=== PATIENT | female | born 1995 | race Caucasian/White ===

== ENCOUNTER 2017-09-05 13:38 | Emergency (ER) | payer OTHER ==
[2017-09-05 13:44] VITALS: O2SAT 98
[2017-09-05] MEDS ORDERED: LORazepam 1 MG TAB PO ONE (14:22)
--- NOTE | 2017-09-05 14:36 | EDPHY ---
H & P Stated Complaint: LORAZEPAM REFILL Source: Patient Exam Limitations: No limitations - Personal History Current Tetanus Diphtheria and Acellular Pertussis (TDAP): Unsure - Medical/Surgical History Hx Asthma: No Hx Chronic Respiratory Disease: No Hx Diabetes: No Hx Cardiac Disease: No Hx Renal Disease: No Hx Cirrhosis: No Hx Alcoholism: No Hx HIV/AIDS: No Hx Splenectomy or Spleen Trauma: No Other PMH: HIP SURGERIES. TONSILS, ADENOIDS, L BREAST IMPLANT - Social History Smoking Status: Never smoked Time Seen by Provider: 09/05/17 14:32 HPI/ROS: HPI: This is a 22-year-old female who presents with Chief Complaint: Medication refill Location: Quality: Medication refill Duration: 1 month Signs and Symptoms: No suicidal ideation, no homicidal ideation, no hallucinations, no paranoia, no chest pain, no shortness of breath, no abdominal pain Timing: Chronic Severity: Moderate Context: Patient was diagnosed with generalized anxiety disorder only 1 year ago while she was living in [place]. Patient moved recently over the last month to [facility] to be able to work and utilize her [employer] degree. 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 She was taking Ativan 1 mg 3 times a day scheduled not on an SSRI or TCA. She has been out of her Ativan for approximately 1 month. Patient has and has had found it to be very difficult to obtain a primary care provider despite her multiple attempts. She does have a appointment with a local psychiatrist scheduled for October 05. Patient reports that she does have insomnia at times due to shift work. She is excited about moving to [place] to start a new life but is extremely frustrated that she is unable to establish care and get medication refill. Modifying Factors: none Comment: ROS: see HPI Constitutional: No fever, no chills, no weight loss Eyes: No blurred vision Respiratory: No shortness of breath, no cough Cardiovascular: No chest pain Gastrointestinal: No nausea, no vomiting, no diarrhea Genitourinary: No dysuria Extremities: No myalgias Neurologic: No weakness, no numbness Skin: No rashes Hematologic: No bruising, no bleeding MEDICAL/SURGICAL/SOCIAL HISTORY: Medical history: Generalized anxiety disorder Surgical history: Denies Social history: Employed. CONSTITUTIONAL: awake and alert, no obvious distress HEENT: Atraumatic and normocephalic, PERRL, EOMI. Tympanic membranes clear. Oropharynx clear, no exudate and moist pink mucosa. Airway patent. No lymphadenopathy. No meningismus. Cardiovascular: Normal S1/S2, regular rate, regular rhythm, without murmur rub or gallop. PULMONARY/CHEST: Symmetrical and nontender. Clear to auscultation bilaterally. Good air movement. No accessory muscle usage. ABDOMEN: Soft, nondistended, nontender, no rebound, no guarding, no peritoneal signs, no masses or organomegaly. No CVAT. EXTREMITIES: 2/2 pulses, strength 5/5, no deformities, no clubbing, no cyanosis or edema. NEUROLOGICAL: no focal neuro deficits. GCS 15. SKIN: Warm and dry, no erythema. no rash. Good capillary refill. PSYCH: Good eye contact, no flight of ideas, organized thought process, good insight and judgment, no auditory and visual command hallucinations, no suicidal ideation with a plan, no homicidal ideation, no paranoia (Nickerson,Terra) Constitutional: Initial Vital Signs Temperature (C) 36.7 C 09/05/17 13:41 Heart Rate 94 09/05/17 13:41 Respiratory Rate 18 09/05/17 13:41 Blood Pressure 139/88 H 09/05/17 13:41 O2 Sat (%) 98 09/05/17 13:41 O2 Delivery Mode Room Air Allergies/Adverse Reactions: Penicillins Allergy (Verified 09/05/17 13:40) Sulfa (Sulfonamide Antibiotics) Allergy (Verified 09/05/17 13:40) UNKNOWN ANTIBIOTICS Allergy (Uncoded 09/05/17 13:40) Home Medications: Medication Instructions Recorded LORazepam 09/05/17 LORazepam [Ativan] 1 mg PO DAILY PRN #6 tablet 09/05/17 Medical Decision Making ED Course/Re-evaluation: This patient was seen with secondary supervising physician. Patient's presentation, labs/imaging, treatment and plan of care were reviewed with secondary supervising physician. This patient was seen under the supervision of my secondary MD Dr. Keita. After discussing patient's case with attending, it was decided to give patient 1 mg Ativan here in the ER and a script for limited number of 6 total. wild life manager was consulted and primary care provider options and follow-up were provided. No signs of benzodiazepine withdrawal/SI/HI Patient would benefit starting SSRI/TCA of limited use of Ativan p.r.n. (Mehnaz Polanco) Differential Diagnosis: Differential diagnosis includes but is not limited to benzodiazepine withdrawal generalized anxiety disorder, depression. (Mehnaz Polanco) Other Provider: The patient was evaluated and managed by the Physician Pump Technician/ Nurse Practitioner. I discussed the patient's presentation and course with the midlevel provider with them and agree with the evaluation. My co-signature indicates that I have reviewed this chart and I agree with the findings and plan of care as documented. I am the secondary supervising physician. (Francia Keita) - Data Points Medications Given: Discontinued Medications Lorazepam (Ativan) 1 mg PO EDNOW ONE Stop: 09/05/17 14:23 Last Admin: 09/05/17 14:31 Dose: 1 mg Departure - Departure Disposition: Home, Routine, Self-Care Clinical Impression: Generalized anxiety disorder, Has run out of medications Condition: Good Instructions: Generalized Anxiety Disorder (ED) Additional Instructions: You have an appointment at [facility] tomorrow Monday09/06/17 at 3pm. Referrals: Sally Ellis MD [Medical Doctor] - As per Instructions [facility],. [Clinic] - As per Instructions Ana Laura Ayala MD [Medical Doctor] - As per Instructions Prescriptions: LORazepam [Ativan] 1 mg PO DAILY PRN #6 tablet PRN Reason: Anxiety
[2017-09-05 15:47] VITALS: BP 130/77; PULSE 90; RESP 16; TEMP 98.4
--- NOTE | 2017-09-05 16:22 | ASMTCMCOM ---
CM Note CM Note Notes: Spoke with patient about finding a local PCP who takes and would be able and willing to prescribe her usual Ativan for her chronic anxiety and OCD. Patient recently moved to [place] from [place]. Patient has called and tried to find in-network providers that would prescribe Ativan but has been unsuccessful Spoke with Katie at [facility] and she says PC could see if they are in-network with and also see financially screen patient for supplement such as Medicaid. Patient is open to this option. Patient has an appointment at PC tomorrow at 3pm. Patient provided PC address, phone number and other information. CM available for further assistance if needed. Date Signed: 09/05/2017 04:21 PM Electronically Signed By:Neda Silva RN
--- NOTE | 2017-09-05 16:24 | ASDISCHSUM ---
Discharge Information Plan Status:Home with No Needs Medically Cleared to Leave: Discharge Date:09/05/2017 03:44 PM CM D/C Disposition:Home, Routine, Self-Care ADT D/C Disposition:Home, Routine, Self-Care Projected Discharge Date:09/05/2017 03:44 PM Transportation at D/C:Self Discharge Delay Reason: Follow-Up Date:09/05/2017 03:44 PM Discharge Slot: Final Diagnosis: Placement Information Patient Contact Information Contact Name:CATHERINE Relationship:Mother Address: Work Phone: City: [facility] Phone: State/[place] Code: Email: Financial Information Financial Class:HMO and PPO Plans Primary Plan Desc:[facility] Primary Plan Number:[id number] Secondary Plan Desc: Secondary Plan Number: Assessment Information [facility] Progress Note CM Note CM Note Notes: Spoke with patient about finding a local PCP who takes and would be able and willing to prescribe her usual Ativan for her chronic anxiety and OCD. Patient recently moved to [place] from [place]. Patient has called [facility] and tried to find in-network providers that would prescribe Ativan but has been unsuccessful Spoke with Katie at [facility] and she says could see if they are in-network with and also see financially screen patient for supplement such as Medicaid. Patient is open to this option. Patient has an appointment at tomorrow at 3pm. Patient provided PC address, phone number and other information. CM available for further assistance if needed. Date Signed: 09/05/2017 04:21 PM Electronically Signed By:Neda Silva RN LACE LACE Acuity / Level of Care Answers: No. Emergency dept visits in Answers: 1 last 6 months Score: 1 Date Signed: 09/05/2017 04:22 PM Electronically Signed By:Neda Silva RN Intervention Information
== END 2017-09-05 15:44 | disposition home or self-care (01) ==
DX: F41.9 Anxiety disorder, unspecified (principal)

== ENCOUNTER 2017-11-19 08:54 | Emergency (ER) | payer BC, OTHER ==
[2017-11-19 09:02] VITALS: TEMP 98.2
--- NOTE | 2017-11-19 09:56 | EDPHY ---
H & P Stated Complaint: right hip pain starting 2 nights ago Source: Patient Exam Limitations: No limitations - Personal History LMP (Females 10-55): 8-14 Days Ago Current Tetanus/Diphtheria Vaccine: Yes Current Tetanus Diphtheria and Acellular Pertussis (TDAP): Yes Tetanus Vaccine Date: < 10 years - Medical/Surgical History Hx Asthma: No Hx Chronic Respiratory Disease: No Hx Diabetes: No Hx Cardiac Disease: No Hx Renal Disease: No Hx Cirrhosis: No Hx Alcoholism: No Hx HIV/AIDS: No Hx Splenectomy or Spleen Trauma: No Other PMH: HIP SURGERIES. 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 Denies any fever/nausea/vomiting /dysuria/hematuria/vaginal bleeding or discharge/radiation/weakness. Patient has had no recent physical activity or trauma. LMP 1-2 weeks ago. 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 Denies any urinary symptoms. Denies history of frequent urinary tract infection. No fever. Modifying Factors: None Comment: ROS: see HPI Constitutional: No fever, no chills, no weight loss Eyes: No blurred vision Respiratory: No shortness of breath, no cough Cardiovascular: No chest pain Gastrointestinal: No nausea, no vomiting no diarrhea Genitourinary: No dysuria Extremities: No myalgias Neurologic: No weakness, no numbness Skin: No rashes Hematologic: No bruising, no bleeding MEDICAL/SURGICAL/SOCIAL HISTORY: Medical/surgical history: Generally healthy. HIP SURGERIES, TONSILS, ADENOIDS, L BREAST IMPLANT Social history: Employed. CONSTITUTIONAL: Obese, nontoxic appearing, very dramatic in talkative, young adult female, awake and alert, no obvious distress HEENT: Atraumatic and normocephalic, PERRL, EOMI. Tympanic membranes clear. Oropharynx clear, no exudate and moist pink mucosa. Airway patent. No lymphadenopathy. No meningismus. Cardiovascular: Normal S1/S2, tachycardia, regular rhythm, without murmur rub or gallop. PULMONARY/CHEST: Symmetrical and nontender. Clear to auscultation bilaterally. Good air movement. No accessory muscle usage. ABDOMEN: Soft, nondistended, nontender, no rebound, no guarding, no peritoneal signs, no masses or organomegaly. Right CVAT. BACK: No midline tenderness, no paraspinous spasm, deep tendon reflexes 2/2, no pain with straight leg raise EXTREMITIES: 2/2 pulses, strength 5/5, right HIP: Flexion to 125, extension to 115, hyper extension to 15, abduction to 45. Pain with internal rotation and external rotation. No tenderness over greater trochanter. no deformities, no clubbing, no cyanosis or edema. NEUROLOGICAL: no focal neuro deficits. GCS 15. SKIN: Warm and dry, no erythema. no rash. Good capillary refill. (Collin,Terra) Constitutional: Initial Vital Signs Temperature (C) 36.8 C 11/19/17 09:00 Heart Rate 107 H 11/19/17 09:00 Respiratory Rate 20 11/19/17 09:00 Blood Pressure 151/80 H 11/19/17 09:00 O2 Sat (%) 97 11/19/17 09:00 O2 Delivery Mode Room Air Allergies/Adverse Reactions: Penicillins Allergy (Verified 11/19/17 08:59) Sulfa (Sulfonamide Antibiotics) Allergy (Verified 11/19/17 08:59) UNKNOWN ANTIBIOTICS Allergy (Uncoded 09/05/17 13:40) Home Medications: Medication Instructions Recorded CLONAZEPAM 11/19/17 Ciprofloxacin [Cipro] 500 mg PO BID #14 tab 11/19/17 Ketorolac Tromethamine [Toradol] 10 mg PO Q6H PRN #16 tab 11/19/17 Phenazopyridine HCl [Pyridium] 100 mg PO Q8 #6 tab 11/19/17 Medical Decision Making - Diagnostics Imaging Results: Imaging Impressions Abdomen/Pelvis CT 11/19/17 10:02 Impression: 1. Possible evidence for right urinary tract infection. 2. No nephro or ureterolithiasis. 3. Constipation. Results called and discussed with Mehnaz Polanco, at 11/19/2017 11:48 Attention: This CT examination is specifically designed to evaluate patients who are clinically suspected of having acute obstructive uropathy. This examination does not use radiographic contrast, and as such, provides only a limited evaluation of the abdomen, pelvis and retroperitoneum. If there is further clinical suspicion for pathological conditions other than obstructive uropathy, a complete CT evaluation of the abdomen and pelvis utilizing intravenous, oral, and rectal contrast should be considered. General information for patients regarding this examination can be found at [email or web address]. If you have questions or comments about this report, please contact me at (hospital) or [phone] (cell). Hip X-Ray 11/19/17 10:02 Impression: 1. 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 If symptoms persist recommend 3-D hip MRI. 2. Minimal lucency around the right femoral screw, doubt loosening. 3. Possible active erosion involving the pubic symphysis. Correlation with any local symptoms is recommended. ED Course/Re-evaluation: Labs, urinalysis, right hip x-ray, IV fluids, IV medications, CT abdomen and pelvis scan without contrast Vital signs reviewed upon arrival and unremarkable. Given p.o. Ativan 1 mg due to excessive anxiety with IV stick, 1 L normal saline , IV Toradol Pelvic x-ray: No acute fracture/dislocation/hardware loosening Called by radiologist who advised that CT abdomen and pelvis scan shows: ? evidence for right urinary tract infection, No nephro or ureterolithiasis, Constipation. Urinalysis shows infection; sent for urine culture; 1 g Rocephin given No leukocytosis/fever/systemic signs. Appropriate to treat outpatient Prescription for ciprofloxacin given, push fluids, establish care with [facility] This patient was seen under the supervision of my secondary supervising physician. I evaluated care for this patient independently. (Mehnaz Polanco) I did not see this patient while she was in the emergency department. However her care was discussed with PA while the patient was in the department. I agree with treatment plan and management (Pablo Saldivar) Differential Diagnosis: Back pain including but not limited to muscular pain, herniated disc, spine fracture, intra-abdominal causes and urinary tract infection. (Mehnaz Polanco) - Data Points Laboratory Results: Laboratory Results 11/19/17 10:50 11/19/17 10:50 11/19/17 11/19/17 11/19/17 12:05 10:50 10:50 WBC RBC Hgb Hct MCV MCH MCHC RDW Plt Count MPV Neut % (Auto) Lymph % (Auto) [place] % (Auto) Eos % (Auto) Baso % (Auto) Nucleat RBC Rel Count Absolute Neuts (auto) Absolute Lymphs (auto) Absolute Monos (auto) Absolute Eos (auto) Absolute Basos (auto) Absolute Nucleated RBC Immature Gran % Immature Gran # Sodium 141 mEq/L mEq/L (135-145) Potassium 4.4 mEq/L mEq/L (3.5-5.2) Chloride 106 mEq/L mEq/L (97-110) Carbon Dioxide 19 mEq/l L mEq/l (22-31) Anion Gap 16 mEq/L mEq/L (8-16) BUN 11 mg/dL mg/dL (7-23) Creatinine 0.6 mg/dL mg/dL (0.6-1.0) Estimated GFR > 60 Glucose 100 mg/dL mg/dL (70-100) Calcium 9.6 mg/dL mg/dL (8.5-10.4) Total Bilirubin 0.9 mg/dL mg/dL (0.1-1.4) Conjugated Bilirubin 0.6 mg/dL H mg/dL (0.0-0.5) Unconjugated Bilirubin 0.3 mg/dL mg/dL (0.0-1.1) AST 41 IU/L IU/L (14-46) ALT 9 IU/L IU/L (9-52) Alkaline Phosphatase 84 IU/L IU/L (38-126) Total Protein 7.7 g/dL g/dL (6.3-8.2) Albumin 4.5 g/dL g/dL (3.5-5.0) Beta HCG, Qual NEGATIVE Specimen Hemolysis 128 Urine Color YELLOW Urine Appearance MODERATELY TURBID Urine pH 7.0 (5.0-7.5) Ur Specific [place] 1.014 (1.002-1.030) Urine Protein 2+ H (NEGATIVE) Urine Ketones NEGATIVE (NEGATIVE) Urine Blood 2+ H (NEGATIVE) Urine Nitrate POSITIVE H (NEGATIVE) Urine Bilirubin NEGATIVE (NEGATIVE) Urine Urobilinogen NEGATIVE EU EU (0.2-1.0) Ur Leukocyte Esterase 3+ H (NEGATIVE) Urine RBC 5-10 /hpf H /hpf (0-3) Urine WBC 50-182 /hpf H /hpf (0-3) Ur Epithelial Cells TRACE /lpf /lpf (NONE-1+) Urine Bacteria 1+ /hpf H /hpf (NONE SEEN) Urine Glucose NEGATIVE (NEGATIVE) 11/19/17 10:50 WBC 11.97 10^3/uL H 10^3/uL (3.80-9.50) RBC 4.52 10^6/uL 10^6/uL (4.18-5.33) Hgb 13.8 g/dL g/dL (12.6-16.3) Hct 40.6 % % (38.0-47.0) MCV 89.8 fL fL (81.5-99.8) MCH 30.5 pg pg (27.9-34.1) MCHC 34.0 g/dL g/dL (32.4-36.7) RDW 12.8 % % (11.5-15.2) Plt Count 244 10^3/uL 10^3/uL (150-400) MPV 9.6 fL fL (8.7-11.7) Neut % (Auto) 83.5 % H % (39.3-74.2) Lymph % (Auto) 10.0 % L % (15.0-45.0) [place] % (Auto) 5.6 % % (4.5-13.0) Eos % (Auto) 0.2 % L % (0.6-7.6) Baso % (Auto) 0.3 % % (0.3-1.7) Nucleat RBC Rel Count 0.0 % % (0.0-0.2) Absolute Neuts (auto) 9.99 10^3/uL H 10^3/uL (1.70-6.50) Absolute Lymphs (auto) 1.20 10^3/uL 10^3/uL (1.00-3.00) Absolute Monos (auto) 0.67 10^3/uL 10^3/uL (0.30-0.80) Absolute Eos (auto) 0.02 10^3/uL L 10^3/uL (0.03-0.40) Absolute Basos (auto) 0.04 10^3/uL 10^3/uL (0.02-0.10) Absolute Nucleated RBC 0.00 10^3/uL 10^3/uL (0-0.01) Immature Gran % 0.4 % % (0.0-1.1) Immature Gran # 0.05 10^3/uL 10^3/uL (0.00-0.10) Sodium Potassium Chloride Carbon Dioxide Anion Gap BUN Creatinine Estimated GFR Glucose Calcium Total Bilirubin Conjugated Bilirubin Unconjugated Bilirubin AST ALT Alkaline Phosphatase Total Protein Albumin Beta HCG, Qual Specimen Hemolysis Urine Color Urine Appearance Urine pH Ur Specific [place] Urine Protein Urine Ketones Urine Blood Urine Nitrate Urine Bilirubin Urine Urobilinogen Ur Leukocyte Esterase Urine RBC Urine WBC Ur Epithelial Cells Urine Bacteria Urine Glucose Medications Given: Discontinued Medications Sodium Chloride (Ns) 1,000 mls @ 0 mls/hr IV ONCE ONE; Wide Open PRN Reason: Protocol Stop: 11/19/17 10:02 Last Admin: 11/19/17 10:51 Dose: 1,000 mls Ceftriaxone Sodium 1 gm/ (Sterile Water) 10 mls @ 150 mls/hr IV EDNOW ONE PRN Reason: Protocol Stop: 11/19/17 13:07 Last Admin: 11/19/17 13:28 Dose: Not Given Ceftriaxone Sodium/Dextrose (Rocephin 1 Gm (Premix)) 50 mls @ 100 mls/hr IV ONCE ONE Stop: 11/19/17 13:59 Last Admin: 11/19/17 13:28 Dose: 50 mls Ketorolac Tromethamine (Toradol) 30 mg IVP EDNOW ONE Stop: 11/19/17 10:02 Last Admin: 11/19/17 10:51 Dose: 30 mg Ketorolac Tromethamine (Toradol) 15 mg IVP EDNOW ONE Stop: 11/19/17 13:49 Last Admin: 11/19/17 13:54 Dose: 15 mg Lorazepam (Ativan) 1 mg PO EDNOW ONE Stop: 11/19/17 10:11 Last Admin: 11/19/17 10:21 Dose: 1 mg Departure - Departure Disposition: Home, Routine, Self-Care Clinical Impression: UTI (urinary tract infection) Qualifiers: Urinary tract infection type: acute cystitis Hematuria presence: without hematuria Qualified Code(s): N30.00 - Acute cystitis without hematuria Condition: Good Instructions: Ciprofloxacin (By mouth), Phenazopyridine (By mouth), Urinary Tract Infection in Women (ED) Additional Instructions: Consume a minimum of 8-10 glasses of water or electrolyte fluid replacement drinks that include Gatorade, Powerade, Pedialyte. Eat a bland diet for the next 48 hours and then slowly advance as tolerated. Take Cipro twice a day for the next 7 days. Use Tylenol and/or ibuprofen as needed for pain/fever. Mix Gatorade with over the counter MiraLax packet daily for x 3 days for constipation. Return to the Emergency Room if symptoms do not resolve in the next 48-72 hours , you spike a fever > 102 F, or experience intractable abdominal pain/nausea/ vomiting. Referrals: [facility],. [Clinic] - As per Instructions Prescriptions: Ciprofloxacin [Cipro] 500 mg PO BID #14 tab Ketorolac Tromethamine [Toradol] 10 mg PO Q6H PRN #16 tab PRN Reason: Pain, Moderate Phenazopyridine HCl [Pyridium] 100 mg PO Q8 #6 tab
[2017-11-19] MEDS ORDERED: NS 1,000 ML IV ONE (10:01)
[2017-11-19] MEDS ORDERED: KETOROLAC 30 MG/1 ML SDV IVP ONE (10:01)
[2017-11-19] MEDS ORDERED: LORazepam 1 MG TAB PO ONE (10:10)
[2017-11-19 11:04] LABS: PLATELET COUNT 244 10^3/uL (150-400)
[2017-11-19] MEDS ORDERED: cefTRIAXone 1 GM in STERILE WATER INJ 10 ML IV ONE (13:04)
[2017-11-19 13:32] VITALS: BP 107/59; PULSE 86; RESP 20; O2SAT 96
[2017-11-19] MEDS ORDERED: KETOROLAC 15 MG/1 ML SDV IVP ONE (13:48)
== END 2017-11-19 13:57 | disposition home or self-care (01) ==
DX: N30.00 Acute cystitis without hematuria (principal); B96.20 Unspecified Escherichia coli [E. coli] as the cause of diseases classified elsewhere; E86.9 Volume depletion, unspecified
CPT/HCPCS: 96365; J0696; J1885

== ENCOUNTER 2017-12-14 14:50 | Emergency (ER) | payer BC ==
[2017-12-14 14:55] VITALS: RESP 18
--- NOTE | 2017-12-14 16:41 | EDPHY ---
H & P Stated Complaint: LEFT BREAST PAIN WITH IMPLANT WITH NAUSEA X 3 DAYS Time Seen by Provider: 12/14/17 16:26 HPI/ROS: CHIEF COMPLAINT: Left breast pain HISTORY OF PRESENT ILLNESS: The patient is a 22 y/o female with a left breast implant complaining of intermittent left breast pain onset 3 days ago. She has had pain at the site of the incision previously, but her pain today is around her entire left breast and worst along the bottom of the breast. Pain is aggravated by breathing, movement, and wearing a bra. Today the pain became constant so she came to the ED for evaluation. She has some associated nausea. She denies fever, warmth, redness, hardness, recent illness, recent trauma, leg pain or swelling, or other complaints. No recent prolonged travel. No family history of respiratory or cardiac diseases. REVIEW OF SYSTEMS: Constitutional: recently had a URI, resolved, no fever Eyes: No visual changes ENT: No sore throat Respiratory: No cough, no shortness of breath Cardiac: see HPI Gastrointestinal: +nausea, no vomiting, no abdominal pain Genitourinary: no dysuria Musculoskeletal: No leg pain or swelling Skin: No rash Neurological: No headache, no weakness Psychiatric: feels anxious - Personal History LMP (Females 10-55): Over 28 Days Ago Current Tetanus/Diphtheria Vaccine: Yes Current Tetanus Diphtheria and Acellular Pertussis (TDAP): Yes Tetanus Vaccine Date: < 10 years - Medical/Surgical History PMH: PMH includes: 1. Left breast implant. Placed 4 years ago for undeveloped breast in [place]. 2. Hip surgeries 3. Tonsillectomy and adenoidectomy Hx Asthma: No Hx Chronic Respiratory Disease: No Hx Diabetes: No Hx Cardiac Disease: No Hx Renal Disease: No Hx Cirrhosis: No Hx Alcoholism: No Hx HIV/AIDS: No Hx Splenectomy or Spleen Trauma: No Other PMH: HIP SURGERIES. TONSILS, ADENOIDS, L BREAST IMPLANT - Social History Smoking Status: Never smoked Additional Social History: Employed. Lives in [place]. Single. Nonsmoker. - Physical Exam Exam: General Appearance: Alert, no distress Eyes: Pupils equal and round, no conjunctival pallor or injection ENT, Mouth: Mucous membranes moist Neck: Normal inspection Respiratory: Lungs are clear to auscultation Cardiovascular: Regular rate and rhythm Chest: Normal appearing left breast without redness or tenderness, tenderness just below left breast over ribs Gastrointestinal: Abdomen is soft and non- tender Neurological: A&O, nonfocal, normal gait Skin: Warm and dry, no rash Extremities: Nontender, no pedal edema Psychiatric: Mood and affect normal Constitutional: Initial Vital Signs Temperature (C) 37.0 C 12/14/17 14:52 Heart Rate 88 12/14/17 14:52 Respiratory Rate 18 12/14/17 14:52 Blood Pressure 130/88 H 12/14/17 14:52 O2 Sat (%) 97 12/14/17 14:52 O2 Delivery Mode Room Air Allergies/Adverse Reactions: Penicillins Allergy (Verified 12/14/17 14:55) Sulfa (Sulfonamide Antibiotics) Allergy (Verified 12/14/17 14:55) Home Medications: Medication Instructions Recorded CLONAZEPAM 11/19/17 Ketorolac Tromethamine [Toradol] 10 mg PO Q6H PRN #16 tab 11/19/17 Medical Decision Making - Diagnostics EKG Interpretation: EKG interpreted by me reveals NSR, rate 60, normal axis intervals, no ST/T changes. Interpretation: normal EKG Imaging Results: CXR: NAD Imaging: I viewed and interpreted images myself ED Course/Re-evaluation: This is a healthy 22 y/o female who presents with a 3-day history of what she describes as left breast pain. On exam, she has a normal appearing breast without evidence of infection or implant rupture, but she does have tenderness over the chest wall just below her left breast. Musculoskeletal etiology likely , especially given recent URI; will evaluate with EKG and chest x-ray for cardiopulm causes. I do not suspect PE in this pt. PERC score negative and low risk per Well's criteria. No further eval for indicated. I do not suspect ACS in this young pt, with no RF and normal EKG. The 12 lead EKG was interpreted by myself. Sinus rhythm rate 70. See hard copy and/or "tracemaster" electronic copy for interpretation. Chest x-ray: normal Results d/w pt, relieved that breast implant is ok, warning signs for chest pain discussed. Ibuprofen instructions given. Differential Diagnosis: Differential diagnosis includes though it is not limited to mastitis, implant rupture, pneumonia, pneumothorax, pulmonary embolism, aortic dissection, pericarditis, acute coronary syndrome. Departure - Departure Disposition: Home, Routine, Self-Care Clinical Impression: Chest wall pain Condition: Good Instructions: Chest Wall Pain (ED) Additional Instructions: 1. Take 600mg ibuprofen every 6-8 hours as needed for pain over the next few days. 2. Follow up with your primary care provider next week if symptoms continue. 3. Return to the ED for severe pain, warmth or redness at the site, difficulty breathing, fever, or other worsening of condition. Referrals: Javier Sheridan MD [place] [place] - As per Instructions Report Scribed for: Juana Tan Report Scribed by: Sonja Lincoln Date of Report: 12/14/17 Time of Report: 16:34 Physician Review and Approval Statement: 12/14/17 16:34 Portions of this note were transcribed by a medical social consultant. I personally performed a history, physical exam, medical decision making, and confirmed accuracy of information the transcribed note.
--- NOTE | 2017-12-14 16:50 | CPEKG ---
Heart Rate: 70 RR Interval: 857 P-R Interval: 144 QRSD Interval: 80 QT Interval: 388 QTC Interval: 419 P Higbee: 14 QRS Higbee: 50 T Wave Higbee: 25 EKG Severity - NORMAL ECG - EKG Impression: SINUS RHYTHM Electronically Signed By: Juana Tan 14-Dec-2017 20:53:07
[2017-12-14 17:35] VITALS: BP 122/78; PULSE 78; TEMP 98.4; O2SAT 96
== END 2017-12-14 17:35 | disposition home or self-care (01) ==
DX: G89.18 Other acute postprocedural pain (principal); R07.89 Other chest pain